=== PATIENT | female | born 1930 | race Caucasian/White ===

== ENCOUNTER 2018-12-25 14:58 | Inpatient (IN) | payer MEDICARE ==
[~2018-12-25] VITALS: Ht 147.3 cm; Wt 54.4 kg
[2018-12-25] MEDS ORDERED: LEXAPRO (15:17)
[2018-12-25 15:37] LABS: BASOPHILS % (AUTO) 0.2 % (0.0-2.0); EOSINOPHILS % (AUTO) 0.3 % (0.0-7.0); HEMATOCRIT 39.3 % (31.2-41.9); HEMOGLOBIN 13.4 g/dL (10.9-14.3); LYMPHOCYTES # (AUTO) 1.4 K/uL (20.0-40.0); LYMPHOCYTES % (AUTO) 17.1 % (20.5-51.5); MEAN CORPUSCULAR HEMOGLOBIN 32.3 uug (24.7-32.8); MEAN CORPUSCULAR HGB CONC 34 g/dL (32.3-35.6); MEAN CORPUSCULAR VOLUME 94.9 fL (75.5-95.3); MONOCYTES # (AUTO) 0.7 K/uL (2.0-10.0); MONOCYTES % (AUTO) 9.1 % (0.0-11.0); NEUTROPHILS # (AUTO) 5.8 K/uL (1.8-8.9); NEUTROPHILS % (AUTO) 73.3 % (38.5-71.5); PLATELET COUNT (AUTO) 233 K/uL (179-408); RED BLOOD CELL COUNT(AUTO) 4.14 MIL/uL (3.63-4.92)
[2018-12-25 15:48] LABS: CARBON DIOXIDE 29 mmol/L (21-32); CHLORIDE 107 mmol/L (98-107); CREATININE 0.9 mg/dL (0.6-1.3); GLUCOSE 161 mg/dL (74-106); POTASSIUM 3.2 mmol/L (3.5-5.1); UREA NITROGEN, BLOOD 25 mg/dL (7-18)
[2018-12-25 15:49] LABS: ETHANOL < 3 MG/DL (0-0)
[2018-12-25 16:02] LABS: THYROID STIMULATING HORMONE 1.176 mIU/mL (0.358-3.740)
[2018-12-25 16:03] LABS: ALANINE AMINOTRANSFERASE 11 U/L (14-59); ALKALINE PHOSPHATASE 87 U/L (50-136); ASPARTATE AMINOTRANSFERASE 18 U/L (15-37); BILIRUBIN,DIRECT 0.1 mg/dL (0.0-0.2); BILIRUBIN,TOTAL 0.6 mg/dL (0.2-1.0); TOTAL PROTEIN, SERUM 6.8 g/dL (6.4-8.2)
[2018-12-25 16:04] LABS: ACETAMINOPHEN < 2.0 ug/mL (10-30)
[2018-12-25 16:11] LABS: *BILIRUBIN,URIN NEGATIVE (NEGATIVE); *BLOOD, URINE NEGATIVE (NEGATIVE); *COLOR,URINE YELLOW (YELLOW); *KETONES,URINE NEGATIVE (NEGATIVE); *UROBILINOGEN,URINE 0.2 E.U./dl (NORMAL); LEUKOCYTE ESTERASE ,URINE TRACE (NEGATIVE); NITRITE, URINE NEGATIVE (NEGATIVE); UGLUCOSE NEGATIVE (NEGATIVE)
[2018-12-25] MEDS ORDERED: POTASSIUM CHLORIDE 20 MEQ TAB.PRT.SR PO ONE (16:15)
[2018-12-25 16:21] LABS: *AMPHETAMINE, URINE NEGATIVE (NEGATIVE); *BARBITURATE, URINE NEGATIVE (NEGATIVE); *CANNABINOID, URINE NEGATIVE (NEGATIVE); *COCCAINE, URINE NEGATIVE (NEGATIVE); *OPIATE, URINE NEGATIVE (NEGATIVE); *PHENCYCLIDINE SCREEN,URINE NEGATIVE (NEGATIVE)
[2018-12-25 16:24] LABS: *CLARITY,URINE SLIGHTLY HAZY (CLEAR)
[2018-12-25 16:25] LABS: BACTERIA,URINE FEW /HPF (NONE SEEN); MUCUS,URINE MANY /LPF (0-FEW); RBC,URINE 0-3 /HPF (0-3); SQUAMOUS EPITHELIAL CELL,UR MODERATE /HPF (NONE SEEN)
[2018-12-25] MEDS ORDERED: POTASSIUM CHLORIDE 20 MEQ TAB.PRT.SR ONE (16:28)
[2018-12-25] MEDS ORDERED: CEphaleXIN 500 MG CAPSULE PO ONE (16:45)
[2018-12-25] MEDS ORDERED: CEphaleXIN 500 MG CAPSULE ONE (16:54)
[2018-12-25] MEDS ORDERED: OLANZAPINE 5 MG TABLET PO ONE (18:00)
[2018-12-25] MEDS ORDERED: OLANZAPINE 5 MG TABLET ONE (18:03)
[2018-12-25] MEDS ORDERED: HYDROMORPHONE 1 MG/1 ML DISP.SYRIN ONE (18:55)
[2018-12-25] MEDS ORDERED: ACETAMINOPHEN 325 MG TABLET PO PRN (20:15)
[2018-12-25] MEDS ORDERED: LORAZEPAM 1 MG TABLET PO PRN (20:15)
[2018-12-25] MEDS ORDERED: MAGNESIUM HYDROXIDE 30 ML LIQUID UDC PO PRN (20:15)
[2018-12-25] MEDS ORDERED: MAG HYDROX/AL HYDROX/SIMETH 30 ML LIQUID UDC PO PRN (20:15)
[2018-12-25 21:40] VITALS: BP 116/70
[2018-12-25] MEDS: CEphaleXIN 500 MG CAPSULE PO SCH (22:21)
[2018-12-26] MEDS: CEphaleXIN 500 MG CAPSULE PO SCH ×3 (06:00→20:35)
[2018-12-26 07:46] LABS: BASOPHILS % (AUTO) 0.5 % (0.0-2.0); EOSINOPHILS # (AUTO) 0.1 K/uL (0.0-0.7); HEMATOCRIT 39.5 % (31.2-41.9); HEMOGLOBIN 13.3 g/dL (10.9-14.3); LYMPHOCYTES # (AUTO) 1.2 K/uL (20.0-40.0); LYMPHOCYTES % (AUTO) 21.4 % (20.5-51.5); MEAN CORPUSCULAR HEMOGLOBIN 32.3 uug (24.7-32.8); MEAN CORPUSCULAR HGB CONC 34 g/dL (32.3-35.6); MEAN CORPUSCULAR VOLUME 95.5 fL (75.5-95.3); MONOCYTES # (AUTO) 0.6 K/uL (2.0-10.0); MONOCYTES % (AUTO) 9.9 % (0.0-11.0); NEUTROPHILS # (AUTO) 3.9 K/uL (1.8-8.9); NEUTROPHILS % (AUTO) 67.2 % (38.5-71.5); PLATELET COUNT (AUTO) 205 K/uL (179-408); RED BLOOD CELL COUNT(AUTO) 4.13 MIL/uL (3.63-4.92); WHITE BLOOD COUNT (AUTO) 5.8 K/uL (3.8-11.8)
[2018-12-26 08:00] VITALS: BP 159/77
[2018-12-26 08:11] LABS: THYROID STIMULATING HORMONE 1.105 mIU/mL (0.358-3.740)
[2018-12-26 08:18] LABS: ALANINE AMINOTRANSFERASE 11 U/L (14-59); ALKALINE PHOSPHATASE 77 U/L (50-136); ASPARTATE AMINOTRANSFERASE 18 U/L (15-37); BILIRUBIN,TOTAL 0.7 mg/dL (0.2-1.0); CARBON DIOXIDE 28 mmol/L (21-32); CHLORIDE 109 mmol/L (98-107); CHOLESTEROL 163 mg/dL (<200); CREATININE 0.8 mg/dL (0.6-1.3); GLUCOSE 91 mg/dL (74-106); HDL CHOLESTEROL 53 mg/dL (40-60); PHOSPHOROUS 3.5 mg/dL (2.5-4.9); POTASSIUM 3.9 mmol/L (3.5-5.1); TOTAL PROTEIN, SERUM 6.3 g/dL (6.4-8.2); TRIGLYCERIDES 51 MG/DL (30-150); UREA NITROGEN, BLOOD 19 mg/dL (7-18)
[2018-12-26] MEDS: ESCITALOPRAM OXALATE 10 MG TABLET PO SCH (09:22)
[2018-12-26] MEDS: DIVALPROEX 125 MG TABLET.DR PO SCH ×3 (09:23→20:35)
[2018-12-26 16:23] VITALS: BP 123/68
[2018-12-26 21:35] VITALS: BP 122/69
[2018-12-27] MEDS: CEphaleXIN 500 MG CAPSULE PO SCH ×3 (06:46→21:02)
[2018-12-27] MEDS: ESCITALOPRAM OXALATE 10 MG TABLET PO SCH (08:43)
[2018-12-27] MEDS: DIVALPROEX 125 MG TABLET.DR PO SCH ×3 (08:43→20:06)
[2018-12-27 10:06] VITALS: BP 114/66
[2018-12-27 16:19] VITALS: BP 124/51
[2018-12-27 21:28] VITALS: BP 131/75
[2018-12-28] MEDS: CEphaleXIN 500 MG CAPSULE PO SCH ×2 (06:58→14:19)
[2018-12-28] MEDS: ESCITALOPRAM OXALATE 10 MG TABLET PO SCH (08:29)
[2018-12-28] MEDS: DIVALPROEX 125 MG TABLET.DR PO SCH ×3 (08:30→20:34)
[2018-12-28 08:47] VITALS: BP 142/64
[2018-12-28 15:03] VITALS: BP 118/65
[2018-12-28 20:22] VITALS: BP 128/79
[2018-12-28] MEDS: TEMAZEPAM 7.5 MG CAPSULE PO PRN (22:33)
[2018-12-29 07:30] VITALS: BP 164/79
[2018-12-29] MEDS: ESCITALOPRAM OXALATE 10 MG TABLET PO SCH (09:10)
[2018-12-29] MEDS: DIVALPROEX 125 MG TABLET.DR PO SCH ×3 (09:10→21:02)
[2018-12-29] MEDS ORDERED: CLONIDINE HCL 0.1 MG TABLET PO PRN (11:00)
[2018-12-29 15:31] VITALS: BP 140/76
[2018-12-29 20:24] VITALS: BP 145/81
[2018-12-30 07:30] VITALS: BP 147/85
[2018-12-30 08:00] LABS: BASOPHILS % (AUTO) 0.4 % (0.0-2.0); EOSINOPHILS # (AUTO) 0.1 K/uL (0.0-0.7); EOSINOPHILS % (AUTO) 2.1 % (0.0-7.0); HEMATOCRIT 41.6 % (31.2-41.9); HEMOGLOBIN 14.3 g/dL (10.9-14.3); LYMPHOCYTES # (AUTO) 1.3 K/uL (20.0-40.0); LYMPHOCYTES % (AUTO) 21.1 % (20.5-51.5); MEAN CORPUSCULAR HEMOGLOBIN 32.9 uug (24.7-32.8); MEAN CORPUSCULAR HGB CONC 34 g/dL (32.3-35.6); MEAN CORPUSCULAR VOLUME 95.9 fL (75.5-95.3); MONOCYTES # (AUTO) 0.5 K/uL (2.0-10.0); MONOCYTES % (AUTO) 8.4 % (0.0-11.0); NEUTROPHILS # (AUTO) 4.3 K/uL (1.8-8.9); PLATELET COUNT (AUTO) 215 K/uL (179-408); RED BLOOD CELL COUNT(AUTO) 4.34 MIL/uL (3.63-4.92); WHITE BLOOD COUNT (AUTO) 6.3 K/uL (3.8-11.8)
[2018-12-30 08:08] LABS: BILIRUBIN,TOTAL 0.7 mg/dL (0.2-1.0); CREATININE 0.8 mg/dL (0.6-1.3); POTASSIUM 4.5 mmol/L (3.5-5.1)
[2018-12-30] MEDS: ESCITALOPRAM OXALATE 10 MG TABLET PO SCH (09:47)
[2018-12-30] MEDS: DIVALPROEX 125 MG TABLET.DR PO SCH ×3 (09:48→20:37)
[2018-12-30 15:36] VITALS: BP 159/85
[2018-12-30 20:10] VITALS: BP 158/84
[2018-12-31 07:30] VITALS: BP_SYST 132; BP_SYST 154; BP_DIAS 44; BP_DIAS 84
[2018-12-31] MEDS: ESCITALOPRAM OXALATE 10 MG TABLET PO SCH (08:27)
[2018-12-31] MEDS: DIVALPROEX 125 MG TABLET.DR PO SCH ×3 (08:27→20:18)
[2018-12-31 15:18] VITALS: BP 144/84
[2019-01-01 07:30] VITALS: BP 134/82
[2019-01-01] MEDS ORDERED: DIVALPROEX 125 MG TABLET.DR PO SCH (09:00)
[2019-01-01] MEDS: ESCITALOPRAM OXALATE 10 MG TABLET PO SCH (09:21)
[2019-01-01] MEDS: DIVALPROEX 250 MG TABLET.DR PO SCH ×2 (09:21→18:04)
[2019-01-01 15:45] VITALS: BP 127/73
[2019-01-01 20:00] VITALS: BP 105/70
[2019-01-02] MEDS: DIVALPROEX 250 MG TABLET.DR PO SCH ×2 (09:01→17:58)
[2019-01-02] MEDS: ESCITALOPRAM OXALATE 10 MG TABLET PO SCH (09:02)
[2019-01-02 10:41] VITALS: BP 147/66
[2019-01-02 20:37] VITALS: BP 105/67
[2019-01-03] MEDS: TEMAZEPAM 7.5 MG CAPSULE PO PRN (01:22)
[2019-01-03 08:25] VITALS: BP 148/87
[2019-01-03] MEDS: ESCITALOPRAM OXALATE 10 MG TABLET PO SCH (08:56)
[2019-01-03] MEDS: DIVALPROEX 250 MG TABLET.DR PO SCH (08:56)
[2019-01-03 15:41] VITALS: BP 112/74
== END 2019-01-03 15:30 | DRG 885 ==
LOC: ER 14:58 → GPS 20:02
PROVIDERS: ADMIT Psychiatry & Neurology Psychiatry; ATTEND Nurse Practitioner Acute Care
DX: F39 Unspecified mood [affective] disorder (principal); F03.91 Unspecified dementia, unspecified severity, with behavioral disturbance; N39.0 Urinary tract infection, site not specified; E44.1 Mild protein-calorie malnutrition; E87.6 Hypokalemia; Z79.899 Other long term (current) drug therapy; F41.9 Anxiety disorder, unspecified; E86.0 Dehydration; R79.89 Other specified abnormal findings of blood chemistry
CPT/HCPCS: 36415; 70030-TC; 71045; 80164; 80307; 83735; 84100; 84443; 85025; 87086; 93005; A4663; C1758; G0480; G0480-TC; J1170; J3490

== ENCOUNTER 2019-04-30 12:04 | Inpatient (IN) | payer MEDICARE ==
[~2019-04-30] VITALS: Ht 152.4 cm; Wt 49.4 kg
[2019-04-30 13:22] LABS: BASOPHILS % (AUTO) 0.4 % (0.0-2.0); EOSINOPHILS # (AUTO) 0.1 K/uL (0.0-0.7); EOSINOPHILS % (AUTO) 0.9 % (0.0-7.0); HEMATOCRIT 41.2 % (31.2-41.9); LYMPHOCYTES # (AUTO) 1.2 K/uL (20.0-40.0); LYMPHOCYTES % (AUTO) 14.3 % (20.5-51.5); MEAN CORPUSCULAR HEMOGLOBIN 31.5 uug (24.7-32.8); MEAN CORPUSCULAR HGB CONC 34 g/dL (32.3-35.6); MEAN CORPUSCULAR VOLUME 92.6 fL (75.5-95.3); MONOCYTES # (AUTO) 0.7 K/uL (2.0-10.0); MONOCYTES % (AUTO) 8.3 % (0.0-11.0); NEUTROPHILS # (AUTO) 6.4 K/uL (1.8-8.9); NEUTROPHILS % (AUTO) 76.1 % (38.5-71.5); PLATELET COUNT (AUTO) 244 K/uL (179-408); RED BLOOD CELL COUNT(AUTO) 4.45 MIL/uL (3.63-4.92); WHITE BLOOD COUNT (AUTO) 8.4 K/uL (3.8-11.8)
[2019-04-30 13:33] LABS: CARBON DIOXIDE 30 mmol/L (21-32); CHLORIDE 101 mmol/L (98-107); CREATININE 0.8 mg/dL (0.6-1.3); GLUCOSE 93 mg/dL (74-106); UREA NITROGEN, BLOOD 22 mg/dL (7-18)
[2019-04-30 13:46] LABS: ETHANOL < 3 MG/DL (0-0); THYROID STIMULATING HORMONE 0.757 mIU/mL (0.358-3.740)
[2019-04-30 13:51] LABS: ALANINE AMINOTRANSFERASE 20 U/L (14-59); ALKALINE PHOSPHATASE 110 U/L (50-136); ASPARTATE AMINOTRANSFERASE 25 U/L (15-37); BILIRUBIN,DIRECT 0.1 mg/dL (0.0-0.2); BILIRUBIN,TOTAL 0.4 mg/dL (0.2-1.0); TOTAL PROTEIN, SERUM 7.6 g/dL (6.4-8.2)
[2019-04-30 13:58] LABS: ACETAMINOPHEN < 2.0 ug/mL (10-30)
[2019-04-30] MEDS ORDERED: POTASSIUM CHLORIDE 20 MEQ TAB.PRT.SR PO ONE (14:30)
[2019-04-30] MEDS ORDERED: POTASSIUM CHLORIDE 20 MEQ TAB.PRT.SR ONE (14:43)
[2019-04-30 15:23] LABS: *BILIRUBIN,URIN NEGATIVE (NEGATIVE); *BLOOD, URINE NEGATIVE (NEGATIVE); *CLARITY,URINE CLOUDY (CLEAR); *COLOR,URINE YELLOW (YELLOW); *KETONES,URINE NEGATIVE (NEGATIVE); *UROBILINOGEN,URINE 0.2 E.U./dl (NORMAL); LEUKOCYTE ESTERASE ,URINE 1+ (NEGATIVE); NITRITE, URINE POSITIVE (NEGATIVE); UGLUCOSE NEGATIVE (NEGATIVE)
[2019-04-30 15:34] LABS: BACTERIA,URINE MANY /HPF (NONE SEEN); MUCUS,URINE FEW /LPF (0-FEW); RBC,URINE 0-3 /HPF (0-3); SQUAMOUS EPITHELIAL CELL,UR FEW /HPF (NONE SEEN); WBC,URINE 20-50 /HPF (0-3)
[2019-04-30 15:40] LABS: *AMPHETAMINE, URINE NEGATIVE (NEGATIVE); *BARBITURATE, URINE NEGATIVE (NEGATIVE); *CANNABINOID, URINE NEGATIVE (NEGATIVE); *COCCAINE, URINE NEGATIVE (NEGATIVE); *OPIATE, URINE NEGATIVE (NEGATIVE); *PHENCYCLIDINE SCREEN,URINE NEGATIVE (NEGATIVE)
[2019-04-30] MEDS ORDERED: NITROFURANTOIN/NITROFURAN MAC 100 MG CAPSULE PO ONE (17:30)
[2019-04-30] MEDS ORDERED: NITROFURANTOIN/NITROFURAN MAC 100 MG CAPSULE ONE (17:55)
[2019-04-30] MEDS ORDERED: MAG HYDROX/AL HYDROX/SIMETH 30 ML LIQUID UDC PO PRN (20:00)
[2019-04-30] MEDS ORDERED: TEMAZEPAM 7.5 MG CAPSULE PO PRN (20:00)
[2019-04-30] MEDS ORDERED: MAGNESIUM HYDROXIDE 30 ML LIQUID UDC PO PRN (20:00)
[2019-04-30 20:10] VITALS: BP 149/72
[2019-04-30] MEDS ORDERED: CLONIDINE HCL 0.1 MG TABLET PO PRN (21:15)
[2019-05-01 07:30] VITALS: BP 128/79
[2019-05-01] MEDS: NITROFURANTOIN/NITROFURAN MAC 100 MG CAPSULE PO SCH ×2 (08:57→16:58)
[2019-05-01] MEDS: MIRALAX 17 GM POWD.PACK PO SCH (08:57)
[2019-05-01] MEDS: HYDROCHLOROTHIAZIDE 12.5 MG CAPSULE PO SCH (09:13)
[2019-05-01] MEDS: ESCITALOPRAM OXALATE 10 MG TABLET PO SCH (12:15)
[2019-05-01] MEDS: risperiDONE 0.5 MG TABLET PO SCH ×2 (12:15→20:00)
[2019-05-01] MEDS: ASPIRIN 325 MG TABLET PO SCH (14:46)
[2019-05-01 16:00] VITALS: BP 128/65
[2019-05-01] MEDS: SIMVASTATIN 40 MG TABLET PO SCH (20:00)
[2019-05-01] MEDS: OXCARBAZEPINE 300 MG TABLET PO SCH (20:02)
[2019-05-01 21:25] VITALS: BP 127/72
[2019-05-02 07:30] VITALS: BP 156/59
[2019-05-02] MEDS ORDERED: ASPIRIN 81 MG TAB.CHEW PO SCH (09:00)
[2019-05-02] MEDS: ESCITALOPRAM OXALATE 10 MG TABLET PO SCH (09:12)
[2019-05-02] MEDS: risperiDONE 0.5 MG TABLET PO SCH ×2 (09:12→20:10)
[2019-05-02] MEDS: HYDROCHLOROTHIAZIDE 12.5 MG CAPSULE PO SCH (09:12)
[2019-05-02] MEDS: NITROFURANTOIN/NITROFURAN MAC 100 MG CAPSULE PO SCH ×2 (09:12→17:14)
[2019-05-02] MEDS: ASPIRIN 325 MG TABLET PO SCH (09:12)
[2019-05-02] MEDS: MIRALAX 17 GM POWD.PACK PO SCH (09:13)
[2019-05-02 13:00] VITALS: BP 122/59
[2019-05-02] MEDS: Z GUARD REMEDY PASTE 57 GM TUBE TOP PRN (16:02)
[2019-05-02] MEDS: OXCARBAZEPINE 300 MG TABLET PO SCH (20:10)
[2019-05-02] MEDS: SIMVASTATIN 40 MG TABLET PO SCH (20:10)
[2019-05-02 20:41] VITALS: BP 132/75
[2019-05-03 07:30] VITALS: BP 120/57
[2019-05-03] MEDS: ESCITALOPRAM OXALATE 10 MG TABLET PO SCH (09:00)
[2019-05-03] MEDS: LORAZEPAM 1 MG TABLET PO PRN (09:00)
[2019-05-03] MEDS: risperiDONE 0.5 MG TABLET PO SCH ×2 (09:00→20:28)
[2019-05-03] MEDS: MIRALAX 17 GM POWD.PACK PO SCH (09:01)
[2019-05-03] MEDS: NITROFURANTOIN/NITROFURAN MAC 100 MG CAPSULE PO SCH ×2 (09:03→18:18)
[2019-05-03] MEDS: HYDROCHLOROTHIAZIDE 12.5 MG CAPSULE PO SCH (09:03)
[2019-05-03] MEDS: ASPIRIN 325 MG TABLET PO SCH (09:04)
[2019-05-03 15:11] VITALS: BP 101/59
[2019-05-03] MEDS: SIMVASTATIN 40 MG TABLET PO SCH (20:28)
[2019-05-03] MEDS: OXCARBAZEPINE 300 MG TABLET PO SCH (20:28)
[2019-05-03 20:30] VITALS: BP 109/68
[2019-05-04 08:30] VITALS: BP 146/57
[2019-05-04] MEDS: ESCITALOPRAM OXALATE 10 MG TABLET PO SCH (08:51)
[2019-05-04] MEDS: NITROFURANTOIN/NITROFURAN MAC 100 MG CAPSULE PO SCH ×2 (08:51→16:32)
[2019-05-04] MEDS: MIRALAX 17 GM POWD.PACK PO SCH (08:51)
[2019-05-04] MEDS: HYDROCHLOROTHIAZIDE 12.5 MG CAPSULE PO SCH (08:51)
[2019-05-04] MEDS: risperiDONE 0.5 MG TABLET PO SCH ×2 (08:51→20:03)
[2019-05-04] MEDS: ASPIRIN 325 MG TABLET PO SCH (08:51)
[2019-05-04] MEDS: LORAZEPAM 1 MG TABLET PO PRN ×2 (09:57→13:58)
[2019-05-04] MEDS: Z GUARD REMEDY PASTE 57 GM TUBE TOP PRN (11:11)
[2019-05-04 16:00] VITALS: BP 121/65
[2019-05-04] MEDS: OXCARBAZEPINE 300 MG TABLET PO SCH (20:03)
[2019-05-04] MEDS: SIMVASTATIN 40 MG TABLET PO SCH (20:03)
[2019-05-04 21:08] VITALS: BP 153/88
[2019-05-05 07:30] VITALS: BP 128/69
[2019-05-05] MEDS: risperiDONE 0.5 MG TABLET PO SCH ×2 (09:05→21:24)
[2019-05-05] MEDS: NITROFURANTOIN/NITROFURAN MAC 100 MG CAPSULE PO SCH ×2 (09:05→16:40)
[2019-05-05] MEDS: ESCITALOPRAM OXALATE 10 MG TABLET PO SCH (09:05)
[2019-05-05] MEDS: HYDROCHLOROTHIAZIDE 12.5 MG CAPSULE PO SCH (09:05)
[2019-05-05] MEDS: MIRALAX 17 GM POWD.PACK PO SCH (09:05)
[2019-05-05] MEDS: OXCARBAZEPINE 150 MG TABLET PO SCH (09:05)
[2019-05-05] MEDS: ASPIRIN 325 MG TABLET PO SCH (09:05)
[2019-05-05] MEDS: LORAZEPAM 1 MG TABLET PO PRN ×2 (11:57→19:06)
[2019-05-05 16:00] VITALS: BP 113/60
[2019-05-05] MEDS: Z GUARD REMEDY PASTE 57 GM TUBE TOP PRN (16:42)
[2019-05-05 20:00] VITALS: BP 90/47
[2019-05-05] MEDS: OXCARBAZEPINE 300 MG TABLET PO SCH (20:43)
[2019-05-05] MEDS: SIMVASTATIN 40 MG TABLET PO SCH (20:44)
[2019-05-06 07:30] VITALS: BP 123/64
[2019-05-06] MEDS: HYDROCHLOROTHIAZIDE 12.5 MG CAPSULE PO SCH (08:34)
[2019-05-06] MEDS: ASPIRIN 325 MG TABLET PO SCH (08:35)
[2019-05-06] MEDS: ESCITALOPRAM OXALATE 10 MG TABLET PO SCH (08:35)
[2019-05-06] MEDS: OXCARBAZEPINE 150 MG TABLET PO SCH (08:35)
[2019-05-06] MEDS: risperiDONE 0.5 MG TABLET PO SCH ×2 (08:35→20:14)
[2019-05-06] MEDS: MIRALAX 17 GM POWD.PACK PO SCH (08:45)
[2019-05-06] MEDS: LORAZEPAM 1 MG TABLET PO PRN (09:30)
[2019-05-06] MEDS: ACETAMINOPHEN 325 MG TABLET PO PRN ×2 (09:30→20:14)
[2019-05-06 15:17] VITALS: BP 101/44
[2019-05-06 20:00] VITALS: BP 102/50
[2019-05-06] MEDS: SIMVASTATIN 40 MG TABLET PO SCH (20:14)
[2019-05-06] MEDS: OXCARBAZEPINE 300 MG TABLET PO SCH (20:14)
[2019-05-07 07:30] VITALS: BP 128/66
[2019-05-07 08:23] LABS: EOSINOPHILS # (AUTO) 0.1 K/uL (0.0-0.7); HEMOGLOBIN 13.6 g/dL (10.9-14.3); LYMPHOCYTES # (AUTO) 0.9 K/uL (20.0-40.0); MEAN CORPUSCULAR HEMOGLOBIN 31.8 uug (24.7-32.8); MONOCYTES # (AUTO) 0.6 K/uL (2.0-10.0); NEUTROPHILS # (AUTO) 4.5 K/uL (1.8-8.9)
[2019-05-07] MEDS: OXCARBAZEPINE 150 MG TABLET PO SCH (08:41)
[2019-05-07] MEDS: ESCITALOPRAM OXALATE 10 MG TABLET PO SCH (08:41)
[2019-05-07] MEDS: MIRALAX 17 GM POWD.PACK PO SCH (08:42)
[2019-05-07] MEDS: risperiDONE 0.5 MG TABLET PO SCH ×2 (08:42→20:43)
[2019-05-07] MEDS: HYDROCHLOROTHIAZIDE 12.5 MG CAPSULE PO SCH (08:42)
[2019-05-07] MEDS: ASPIRIN 325 MG TABLET PO SCH (08:43)
[2019-05-07 08:53] LABS: ALANINE AMINOTRANSFERASE 14 U/L (14-59); ALKALINE PHOSPHATASE 104 U/L (50-136); ASPARTATE AMINOTRANSFERASE 22 U/L (15-37); BILIRUBIN,TOTAL 0.5 mg/dL (0.2-1.0); CARBON DIOXIDE 32 mmol/L (21-32); CHLORIDE 103 mmol/L (98-107); CREATININE 0.8 mg/dL (0.6-1.3); GLUCOSE 101 mg/dL (74-106); POTASSIUM 3.3 mmol/L (3.5-5.1); TOTAL PROTEIN, SERUM 7.2 g/dL (6.4-8.2); UREA NITROGEN, BLOOD 31 mg/dL (7-18)
[2019-05-07 08:55] LABS: BASOPHILS % (AUTO) 0.7 % (0.0-2.0); EOSINOPHILS % (AUTO) 0.8 % (0.0-7.0); LYMPHOCYTES % (AUTO) 14.8 % (20.5-51.5); MEAN CORPUSCULAR HGB CONC 35 g/dL (32.3-35.6); MEAN CORPUSCULAR VOLUME 91.4 fL (75.5-95.3); MONOCYTES % (AUTO) 10.4 % (0.0-11.0); NEUTROPHILS % (AUTO) 73.3 % (38.5-71.5); PLATELET COUNT (AUTO) 228 K/uL (179-408); RED BLOOD CELL COUNT(AUTO) 4.27 MIL/uL (3.63-4.92)
[2019-05-07 08:58] LABS: WHITE BLOOD COUNT (AUTO) 6.1 K/uL (3.8-11.8)
[2019-05-07 17:04] VITALS: BP 118/69
[2019-05-07 19:55] VITALS: BP 112/58
[2019-05-07] MEDS: OXCARBAZEPINE 300 MG TABLET PO SCH (20:45)
[2019-05-07] MEDS: SIMVASTATIN 40 MG TABLET PO SCH (20:45)
[2019-05-08] MEDS: OXCARBAZEPINE 150 MG TABLET PO SCH (09:02)
[2019-05-08] MEDS: risperiDONE 0.5 MG TABLET PO SCH ×2 (09:02→20:16)
[2019-05-08] MEDS: ESCITALOPRAM OXALATE 10 MG TABLET PO SCH (09:03)
[2019-05-08] MEDS: MIRALAX 17 GM POWD.PACK PO SCH (09:03)
[2019-05-08] MEDS: ASPIRIN 325 MG TABLET PO SCH (09:03)
[2019-05-08] MEDS: HYDROCHLOROTHIAZIDE 12.5 MG CAPSULE PO SCH (09:03)
[2019-05-08 10:00] VITALS: BP 108/50
[2019-05-08 16:00] VITALS: BP 105/57
[2019-05-08 20:00] VITALS: BP 122/74
[2019-05-08] MEDS: SIMVASTATIN 40 MG TABLET PO SCH (20:16)
[2019-05-08] MEDS: ACETAMINOPHEN 325 MG TABLET PO PRN (20:16)
[2019-05-08] MEDS: OXCARBAZEPINE 300 MG TABLET PO SCH (20:16)
[2019-05-08] MEDS ORDERED: POTASSIUM CHLORIDE 20 MEQ TAB.PRT.SR PO ONE (20:30)
[2019-05-08] MEDS: Z GUARD REMEDY PASTE 57 GM TUBE TOP PRN (23:30)
[2019-05-09] MEDS: LORAZEPAM 1 MG TABLET PO PRN (05:40)
[2019-05-09 07:30] VITALS: BP 128/66
[2019-05-09] MEDS: risperiDONE 0.5 MG TABLET PO SCH ×2 (08:02→20:23)
[2019-05-09] MEDS: ASPIRIN 325 MG TABLET PO SCH (08:02)
[2019-05-09] MEDS: OXCARBAZEPINE 150 MG TABLET PO SCH (08:02)
[2019-05-09] MEDS: HYDROCHLOROTHIAZIDE 12.5 MG CAPSULE PO SCH (08:02)
[2019-05-09] MEDS: ESCITALOPRAM OXALATE 10 MG TABLET PO SCH (08:03)
[2019-05-09] MEDS: MIRALAX 17 GM POWD.PACK PO SCH (08:03)
[2019-05-09 16:00] VITALS: BP 111/58
[2019-05-09] MEDS: OXCARBAZEPINE 300 MG TABLET PO SCH (20:23)
[2019-05-09] MEDS: SIMVASTATIN 40 MG TABLET PO SCH (20:23)
[2019-05-09 20:38] VITALS: BP 134/75
[2019-05-10] MEDS: LORAZEPAM 1 MG TABLET PO PRN (03:13)
[2019-05-10 07:30] VITALS: BP 114/63
[2019-05-10] MEDS: ASPIRIN 325 MG TABLET PO SCH (11:13)
[2019-05-10] MEDS: OXCARBAZEPINE 150 MG TABLET PO SCH (11:14)
[2019-05-10] MEDS: risperiDONE 0.5 MG TABLET PO SCH ×2 (11:14→20:04)
[2019-05-10] MEDS: HYDROCHLOROTHIAZIDE 12.5 MG CAPSULE PO SCH (11:14)
[2019-05-10] MEDS: MIRALAX 17 GM POWD.PACK PO SCH (11:15)
[2019-05-10] MEDS: ESCITALOPRAM OXALATE 10 MG TABLET PO SCH (11:16)
[2019-05-10 16:00] VITALS: BP 111/60
[2019-05-10 19:42] VITALS: BP 125/65
[2019-05-10] MEDS: SIMVASTATIN 40 MG TABLET PO SCH (20:04)
[2019-05-10] MEDS: OXCARBAZEPINE 300 MG TABLET PO SCH (20:04)
[2019-05-11 07:30] VITALS: BP 139/59
[2019-05-11] MEDS: risperiDONE 0.5 MG TABLET PO SCH (09:33)
[2019-05-11] MEDS: HYDROCHLOROTHIAZIDE 12.5 MG CAPSULE PO SCH (09:33)
[2019-05-11] MEDS: OXCARBAZEPINE 150 MG TABLET PO SCH (09:33)
[2019-05-11] MEDS: ESCITALOPRAM OXALATE 10 MG TABLET PO SCH (09:33)
[2019-05-11] MEDS: MIRALAX 17 GM POWD.PACK PO SCH (09:33)
[2019-05-11] MEDS: ASPIRIN 325 MG TABLET PO SCH (09:33)
[2019-05-11 16:00] VITALS: BP 120/71
[2019-05-11 19:55] VITALS: BP 126/67
[2019-05-11] MEDS: SIMVASTATIN 40 MG TABLET PO SCH (20:19)
[2019-05-11] MEDS: risperiDONE 1 MG TABLET PO SCH (20:19)
[2019-05-11] MEDS: OXCARBAZEPINE 300 MG TABLET PO SCH (20:19)
[2019-05-11] MEDS ORDERED: risperiDONE 0.5 MG TABLET PO SCH (21:00)
[2019-05-12 07:30] VITALS: BP 127/64
[2019-05-12] MEDS: ASPIRIN 325 MG TABLET PO SCH (08:27)
[2019-05-12] MEDS: OXCARBAZEPINE 150 MG TABLET PO SCH (08:27)
[2019-05-12] MEDS: ESCITALOPRAM OXALATE 10 MG TABLET PO SCH (08:27)
[2019-05-12] MEDS: risperiDONE 1 MG TABLET PO SCH ×2 (08:27→20:52)
[2019-05-12] MEDS: MIRALAX 17 GM POWD.PACK PO SCH (08:28)
[2019-05-12] MEDS: HYDROCHLOROTHIAZIDE 12.5 MG CAPSULE PO SCH (08:48)
[2019-05-12] MEDS: ACETAMINOPHEN 325 MG TABLET PO PRN (12:22)
[2019-05-12] MEDS: LORAZEPAM 1 MG TABLET PO PRN (12:22)
[2019-05-12 16:05] VITALS: BP 98/54
[2019-05-12 20:00] VITALS: BP 109/57
[2019-05-12] MEDS: SIMVASTATIN 40 MG TABLET PO SCH (20:52)
[2019-05-12] MEDS: OXCARBAZEPINE 300 MG TABLET PO SCH (20:53)
[2019-05-12 22:00] VITALS: BP 119/62
[2019-05-13 07:30] VITALS: BP 102/57
[2019-05-13] MEDS: ESCITALOPRAM OXALATE 10 MG TABLET PO SCH (08:06)
[2019-05-13] MEDS: ASPIRIN 325 MG TABLET PO SCH (08:06)
[2019-05-13] MEDS: OXCARBAZEPINE 150 MG TABLET PO SCH (08:07)
[2019-05-13] MEDS: HYDROCHLOROTHIAZIDE 12.5 MG CAPSULE PO SCH (08:07)
[2019-05-13] MEDS: risperiDONE 1 MG TABLET PO SCH ×2 (08:07→20:23)
[2019-05-13] MEDS: MIRALAX 17 GM POWD.PACK PO SCH (08:07)
[2019-05-13 15:18] VITALS: BP 105/46
[2019-05-13 20:00] VITALS: BP 100/50
[2019-05-13] MEDS: OXCARBAZEPINE 300 MG TABLET PO SCH (20:23)
[2019-05-13] MEDS: SIMVASTATIN 40 MG TABLET PO SCH (20:23)
[2019-05-14] MEDS ORDERED: LORAZEPAM 0.5 MG TABLET PO PRN (04:30)
[2019-05-14] MEDS ORDERED: TEMAZEPAM 7.5 MG CAPSULE PO PRN (04:30)
[2019-05-14] MEDS ORDERED: CLONIDINE HCL 0.1 MG TABLET PO PRN (07:15)
[2019-05-14 07:40] VITALS: BP 135/74
[2019-05-14] MEDS: OXCARBAZEPINE 150 MG TABLET PO SCH (08:43)
[2019-05-14] MEDS: ASPIRIN 325 MG TABLET PO SCH (08:44)
[2019-05-14] MEDS: risperiDONE 1 MG TABLET PO SCH (08:44)
[2019-05-14] MEDS: MIRALAX 17 GM POWD.PACK PO SCH (08:44)
[2019-05-14] MEDS: HYDROCHLOROTHIAZIDE 12.5 MG CAPSULE PO SCH (08:44)
[2019-05-14] MEDS ORDERED: ESCITALOPRAM OXALATE 10 MG TABLET PO SCH (09:00)
== END 2019-05-14 15:15 | DRG 885 ==
LOC: ER 12:04 → GPS 18:50
PROVIDERS: ADMIT Psychiatry & Neurology Psychiatry; ATTEND Registered Nurse
DX: F31.64 Bipolar disorder, current episode mixed, severe, with psychotic features (principal); F03.91 Unspecified dementia, unspecified severity, with behavioral disturbance; N39.0 Urinary tract infection, site not specified; E78.5 Hyperlipidemia, unspecified; E87.6 Hypokalemia; B96.20 Unspecified Escherichia coli [E. coli] as the cause of diseases classified elsewhere; Z91.19 Patient's noncompliance with other medical treatment and regimen; Z87.440 Personal history of urinary (tract) infections; Z79.899 Other long term (current) drug therapy; I70.0 Atherosclerosis of aorta; Z86.73 Personal history of transient ischemic attack (TIA), and cerebral infarction without residual deficits
CPT/HCPCS: 36415; 70030-TC; 70450; 71045; 80307; 84443; 85025; 87077; 87086; A4663; G0480; G0480-TC